=== PATIENT | male | born 1970 | race Caucasian/White ===

== ENCOUNTER 2017-05-25 07:34 | Day surgery (SDC) | payer OTHER ==
[2017-05-25] MEDS ORDERED: LIDOCAINE 1% 2 ML INJ ID PRN (07:45)
[2017-05-25] MEDS ORDERED: LR 1,000 ML IV ONE (07:45)
[2017-05-25 07:54] VITALS: PULSE 61
[2017-05-25] MEDS ORDERED: GLUCAGON,HUMAN RECOMBINANT 1 MG VIAL ONE (09:19)
--- NOTE | 2017-05-25 10:41 | PDANEPAE ---
ANE History of Present Illness here for EGD/EUS ANE Past Medical History - Cardiovascular History Hx Hypertension: Yes Hx Arrhythmias: No Hx Chest Pain: No Hx Coronary Artery / Peripheral Vascular Disease: No Hx CHF / Valvular Disease: No Hx Palpitations: No Cardiovascular History Comment: [place] 08-13-16 due to anemia secondary to bleeding in esophagus. On statin Rx. Tx for anemia w/iron. - Pulmonary History Hx COPD: No Hx Asthma/Reactive Airway Disease: No Hx Recent Upper Respiratory Infection: No Hx Oxygen in Use at Home: No Hx Sleep Apnea: No Sleep Apnea Screening Result - Last Documented: Negative - Neurologic History Hx Cerebrovascular Accident: No Hx Seizures: No Hx Dementia: No - Endocrine History Hx Diabetes: No - Renal History Hx Renal Disorders: No - Liver History Hx Hepatic Disorders: No - Neurological & Psychiatric Hx Hx Neurological and Psychiatric Disorders: No - Cancer History Hx Cancer: No - Congenital Disorder History Hx Congenital Disorders: No - GI History Hx Gastrointestinal Disorders: Yes Gastrointestinal History Comment: Graves's esophagus. GERD. Developed [place]/ anemia fall due to bleeding in esophagus. - Other Health History Other Health History: Hospitalized 5 days for post-op infection [facility] 03-31-17. - Chronic Pain History Chronic Pain: No - Surgical History Prior Surgeries: Appy 03-31-17- developed post-op infection. R thumb sx. L wrist sx ANE Review of Systems Review of systems is: negative - Exercise capacity Exercise capacity: >=4 METS METS (RN): 4 METS ANE Patient History - Allergies Allergies/Adverse Reactions: morphine Allergy (Verified 05/18/17 10:54) Vomiting - Home Medications Home medications: home medication list seen and reviewed Home Medications: Aspirin 81mg (*) 05/18/17 [Last Taken 1 Day Ago] IRON 05/18/17 [Last Taken 1 Day Ago] Lipitor 05/18/17 [Last Taken 1 Day Ago] Lisinopril 05/18/17 [Last Taken 1 Day Ago] Metoprolol Oral Susp (*) 05/18/17 [Last Taken 1 Day Ago] - NPO status NPO Since - Liquids (Date): 05/24/17 NPO Since - Liquids (Time): 21:00 NPO Since - Solids (Date): 05/24/17 NPO Since - Solids (Time): 20:00 - Anes Hx Anes Hx: post operative nausea - Smoking Hx Smoking Status: Never smoked ANE Labs/Vital Signs - Vital Signs Blood Pressure: 128/90 Heart Rate: 61 Respiratory Rate: 16 O2 Sat (%): 93 Height: 182.88 cm Weight: 99.79 kg ANE Physical Exam - Airway Neck exam: FROM Mallampati Score: Class 1 - Pulmonary Pulmonary: no respiratory distress - Cardiovascular Cardiovascular: regular rate and rhythym - ASA Status ASA Status: II ANE Anesthesia Plan Anesthesia Plan: general endotracheal anesthesia
[2017-05-25] MEDS ORDERED: PROPOFOL/EMULSION 500 MG/50 ML BOTTLE IV ONE (10:42)
[2017-05-25] MEDS ORDERED: PROPOFOL 200 MG/20 ML VIAL ONE ×2 (10:43)
--- NOTE | 2017-05-25 10:53 | PDGENHP ---
History & Physical Chief Complaint: esophageal nodule History of Present Illness: 47 year old male presents for evaluation of esophageal nodule. Pertinent Past, Social, Family History: SoHx: No alc or cigs. FaMHx: No eosphageal cancer Relevant Physical Exam: HEENT: anicteric. CV: RRR +s1s2. Lungs: CTAB Cardiorespiratory Assessment: ASA 2 Mallimapatti 1
[2017-05-25] MEDS ORDERED: ONDANSETRON 4 MG/2 ML VIAL IVP PRN (11:00)
[2017-05-25] MEDS ORDERED: DEXAMETHASONE 4 MG/ML VIAL IVP PRN (11:00)
[2017-05-25] MEDS ORDERED: fentaNYL 100 MCG/2 ML INJ IVP PRN (11:00)
[2017-05-25] MEDS ORDERED: NALOXONE HCL 0.4 MG/ML INJ IVP PRN (11:00)
[2017-05-25] MEDS ORDERED: INDOMETHACIN 50 MG SUPP PR PRN (11:18)
--- NOTE | 2017-05-25 11:18 | POSTOPPROG ---
Post Op Note Date of Operation: 05/25/17 Surgeon: Jaguar Morrison Anesthesia: IV Sedation Pre-op Diagnosis: barretts, nodule Post-op Diagnosis: irreg z line, gastirris Indication: barretts Procedure: egd with bx, snare Findings: + irreg Z line, gastritis Inf/Abcess present in the surg proc area at time of surgery?: No
[2017-05-25] MEDS ORDERED: NS 500 ML IV SCH (11:30)
--- NOTE | 2017-05-25 11:40 | POSTANESTH ---
Post Anesthetic Evaluation Cardiovascular Status: Normal, Stable Respiratory Status: Normal, Stable Level of Consciousness/Mental Status: Can Participate in Eval Pain Control: Adequate, Prn Tx Ordered Nausea/Vomiting Control: Adequate, Prn Tx Ordered Complications Possibly Related to Anesthesia: None Noted
[2017-05-25 11:41] VITALS: TEMP 97.5
--- NOTE | 2017-05-25 11:50 | GPN ---
[f rep st] PROCEDURE NOTE DATE OF PROCEDURE: 05/25/2017 PROCEDURE: Esophagogastroduodenoscopy with biopsy. INDICATIONS: The patient is a 47-year-old male who presents for surveillance of a nodule seen at the gastroesophageal junction. This was snared and removed previously. On pathology, intestinal metaplasia was noted consistent with Graves esophagus. He presents for further evaluation. CONSENT: Risks, benefits and alternatives of the procedure were discussed in great detail with the patient. Risks of infection, bleeding, perforation, and sedation were discussed. All questions answered. Informed consent obtained. MEDICATIONS: Propofol. Please see anesthesiology record for details. ESTIMATED BLOOD LOSS: Insignificant. ESOPHAGOGASTRODUODENOSCOPY EXAMINATION: The Olympus upper endoscope was inserted in the mouth and advanced into the esophagus. The proximal and mid esophagus was normal in appearance. The patient did have an irregular Z-line with mild nodularity Multiple biopsies were taken. No nodule was noted. The stomach was entered and closely examined, including retroflexed views of the angularis, cardia and fundus. A large hiatal hernia was noted. Multiple sessile polyps were noted on the greater curvature, and biopsies were taken. The duodenal bulb and 2nd portion of duodenum were normal in appearance. IMPRESSION: 1. Irregular Z-line- with history of Graves esophagus. Biopsies taken. 2. Gastric polyp, status post biopsy. 3. Hiatal hernia. RECOMMENDATION: 1. Follow up on biopsy results. 2. Antireflux therapy. 3. PPI therapy. /[id number]/MODL MTDD
[2017-05-25 12:14] VITALS: O2SAT 96
[2017-05-25 12:39] VITALS: BP 128/82; RESP 14
== END 2017-05-25 12:36 | disposition home or self-care (01) ==
LOC: FSGY 07:34
PROVIDERS: ATTEND Internal Medicine Gastroenterology
PROC: 0DB68ZX Excision of Stomach, Via Natural or Artificial Opening Endoscopic, Diagnostic (ICD-10-PCS; principal; 2017-05-25 09:00)
PROC: 0DB58ZX Excision of Esophagus, Via Natural or Artificial Opening Endoscopic, Diagnostic (ICD-10-PCS; principal; 2017-05-25 09:00)
DX: K22.8 Other specified diseases of esophagus (principal); K46.9 Unspecified abdominal hernia without obstruction or gangrene; I10 Essential (primary) hypertension; K22.70 Barrett's esophagus without dysplasia; K21.9 Gastro-esophageal reflux disease without esophagitis
CPT/HCPCS: J1610; J2704